=== PATIENT | male | born 1935 ===

== ENCOUNTER 2022-04-29 19:08 | Emergency (ER) | payer MEDICARE, SELFPAY | END 2022-04-29 20:43 | disposition left against medical advice (07) | PROVIDERS: Emergency Provider Emergency Medicine | DX: R10.9 Unspecified abdominal pain (principal) ==

== ENCOUNTER 2022-11-29 14:06 | Emergency (ER) | payer MEDICARE, SELFPAY ==
--- NOTE | ~2022-11-29 | US_ITS ---
EXAMINATION: US VENOUS ULTRASOUND WITH DOPPLER LOWER EXTREMITY, BILATERAL CLINICAL INFORMATION: Bilateral lower extremity pitting edema COMPARISON: None available. TECHNIQUE: Ultrasound of the deep veins is performed from the hip to the calf with compression sonography and color and pulse Doppler assessment. Spectral analysis with color-flow imaging is performed. FINDINGS: RIGHT: There is normal venous compression and respiratory variation and augmented flow. The visualized common femoral vein, superficial femoral vein, profunda femoral vein, popliteal vein, and the trifurcation region shows no evidence of deep venous thrombosis. There is no significant popliteal fossa cyst. There is a mildly prominent lymph node in the right inguinal region, likely reactive to fluid overload LEFT: There is normal venous compression and respiratory variation and augmented flow. The visualized common femoral vein, superficial femoral vein, profunda femoral vein, popliteal vein, and the trifurcation region shows no evidence of deep venous thrombosis. There is no significant popliteal fossa cyst. If the patient's symptoms persist, followup ultrasound in 5 days 7 days might be of value to exclude proximal propagation from a non-visualized calf vein. US/US venous duplex LE BI IMPRESSION: No DVT demonstrated in the bilateral lower extremities.
--- NOTE | ~2022-11-29 | CT_ITS ---
EXAMINATION: CT ANGIOGRAM OF THE CHEST WITH AND WITHOUT CONTRAST (CT PULMONARY ANGIOGRAM FOR PE) CLINICAL INFORMATION: Reason for Exam cp, sob, + dimer COMPARISON: CTA chest 12/27/2012. TECHNIQUE: Prior to contrast administration, noncontrast localization images were obtained. Subsequently, multidetector volumetric imaging was performed from the thoracic inlet to below the diaphragms following the administration of 65 mL Omnipaque 350 intravenous contrast. No contrast reaction reported Sagittal, coronal, and MIP oblique sagittal reformatted images were obtained on the CT workstation, uploaded to PACS, and reviewed. This CT examination was performed using dose optimization techniques as appropriate, variously including the following: *Automated exposure control *Adjustment of mA and/or kV according to patient size (this includes techniques or standardized protocols for targeted exams where dose is matched to indication/reason for exam; i.e. extremities or head) *Use of iterative reconstruction technique Total exam dose-length product 207 mGy-cm FINDINGS: QUALITY OF STUDY/CONTRAST BOLUS: Satisfactory. PULMONARY ARTERIES: No pulmonary emboli. THORACIC AORTA: No aneurysm. LUNG: Background of emphysematous changes and peripheral fibrotic changes, progressed compared to 2012. Prominent biapical pleuroparenchymal thickening and scarring, not significantly changed with a artists' booking representative partially cavitated pleural base observation in the left apex measuring 1.5 cm AP diameter (8:77). Diffuse bronchial wall thickening with a scattered mucus plugging, increased since 2012. Scattered sub-4 mm pulmonary nodules are stable, for instance in the medial right upper lobe (8:138). Central airways are patent. PLEURA: No pleural effusion or pneumothorax. MEDIASTINUM: Normal heart size. No pericardial effusion. No hilar or mediastinal lymphadenopathy. No evidence of septal bowing or right heart strain. CORONARY ARTERY CALCIFICATION: Coronary artery calcifications are present. CHEST WALL/AXILLA: Symmetric gynecomastia. No axillary lymphadenopathy. OSSEOUS STRUCTURES: No acute or suspicious osseous abnormality. UPPER ABDOMEN: Unremarkable. No reflux of contrast into the hepatic veins to suggest elevated right heart pressures. CT/CT angio chest PE protocol IMPRESSION: 1. No evidence of pulmonary embolism. 2. Background of emphysematous changes and peripheral fibrotic changes, progressed since 2012. 3. Diffuse bronchial wall thickening with scattered mucus plugging, increased since 2012, suggesting small airways disease such as bronchitis. 4. Significant biapical pleural-parenchymal thickening, not significantly changed, limiting assessment of underlying pulmonary mass. Scattered pulmonary nodules are not convincingly changed. In this patient with high risk factors for malignancy, continued follow-up with a chest CT in 6-12 months is recommended to rule out underlying malignancy. VTE: negative
--- NOTE | ~2022-11-29 | XR_ITS ---
EXAMINATION: XR CHEST CLINICAL INFORMATION: Shortness of breath and pedal edema COMPARISON: 09/12/2016 TECHNIQUE: 2 views of the chest were obtained. FINDINGS: Normal heart size and pulmonary vascularity. No pleural effusion or pneumothorax. Streaky opacity at the left lung base likely subsegmental atelectasis. No acute osseous abnormalities. XR/XR chest 2V IMPRESSION: * No acute findings. * Left basilar subsegmental atelectasis.
[2022-11-29 14:31] VITALS: BP 125/65; PULSE 108; RESP 16; TEMP 36.1; O2SAT 92; BMI 20.7
--- NOTE | 2022-11-29 14:31 | ED_ITS ---
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 <RYAN Wellington Last Filed: 11/29/22 18:54> Related Data Allergies/Adverse Reactions: Allergies Allergy/AdvReac Type Severity Reaction Status Date / Time No Known Allergies Allergy Unverified 04/23/20 15:07 [No Known Allergies*] <RYAN Ellis Last Filed: 11/29/22 14:41> Review of Systems Review of Systems: Constitutional : No Weight loss, No Fever, No Chills, + Fatigue, + Malaise ENT/Mouth : No sore throat, No Rhinorrhea Eyes: No Eye Pain, No Swelling, No Redness Cardiovascular : + Chest Pain, + SOB, + Dyspnea on Exertion, No Orthopnea, No Edema, No Palpitations Respiratory : No Cough, No Sputum, No Wheezing Gastrointestinal : No Nausea, No Vomiting, No Diarrhea, No Constipation, No abdominal Pain, No Hematochezia, No Melena Genitourinary : No Dysuria, No Urinary Frequency, No Hematuria, Musculoskeletal : No joint pain, No Myalgias, No Joint Swelling Skin : No Skin Lesions, No rash Neuro : No Weakness, No Numbness, No Dizziness, No Headache Psych : No Anxiety/Panic, No Depression All other systems reviewed and are negative <RYAN Wellington - Last Filed: 11/29/22 18:54> Yes all other systems are reviewed and are negative <RYAN Wellington - Last Filed: 11/29/22 18:54> [facility] Past Medical History Attestation statement: The following information was validated with the patient. <RYAN Wellington - Last Filed: 11/29/22 18:54> Source: old records reviewed and nursing notes reviewed <RYAN Wellington - Last Filed: 11/29/22 18:54> Social History Social History: Social History Alcohol intake: never Smoked in Last 30 Days: No Use of substances other than those prescribed or required for medical reasons: No Advance Directives: No Advance Directives Information Provided: Yes <RYAN Ellis - Last Filed: 11/29/22 14:41> Physical Exam Vital Signs: Vital Signs: Last Vital Signs Temp 98.4 F 11/29/22 17:50 Pulse 94 11/29/22 17:50 Resp 16 11/29/22 17:50 BP 153/76 H 11/29/22 17:50 Pulse Ox 99 11/29/22 17:50 O2 Del Method Nasal Cannula 11/29/22 17:50 O2 Flow Rate 3 11/29/22 17:50 BMI result Body Mass Index 20.7 <RYAN Ellis - Last Filed: 11/29/22 14:41> Vital Signs: Last Vital Signs Temp 98.4 F 11/29/22 17:50 Pulse 94 11/29/22 17:50 Resp 16 11/29/22 17:50 BP 153/76 H 11/29/22 17:50 Pulse Ox 99 11/29/22 17:50 O2 Del Method Nasal Cannula 11/29/22 17:50 O2 Flow Rate 3 11/29/22 17:50 BMI result Body Mass Index 20.7 vss <RYAN Wellington - Last Filed: 11/29/22 18:54> Appearance: Alert.? Oriented X3.? No acute distress.? Head: Normocephalic, atraumatic, no step-offs or deformities Eyes: Pupils equal, round and reactive to light.? CVS: Normal heart rate and rhythm.? Pulses normal.? Respiratory: No respiratory distress.? Breath sounds diminished b/l.? Abdomen: Soft and nontender.? Skin: Skin warm and dry.? Normal skin color.? Normal skin turgor.? Extremities:3+ pitting edema from the knee down b/l.? No calf ttp. Global weakness Neuro: Oriented X 3.? No motor deficit.? No sensory deficit. CN 2-12 intact <RYAN Wellington - Last Filed: 11/29/22 18:54> Course Course Course Narrative: RME: 87yo M w/PMHx DM, COPD/Asthma on home O2 3L as needed c/o bilateral LE swelling/edema x 1 week. Reports had someone come to the home and eval patient 3 days ago, they were concerned for CHF and increased his Lasix to 40mg w/o relief. Reports mild SOB & CP +4 b/l pitting edema, diminished lung sounds, 91% on RA EKG, Labs, CXR ordered Full HPI, ROS and PE to be performed by primary ED provider. <RYAN Ellis - Last Filed: 11/29/22 14:41> Reevaluation(s) Reevaluation #1: CBC with no acute findings requiring intervention, no leukocytosis or anemia, patient's sodium slightly elevated 146, BUN 20 likely secondary to poor p.o. intake. Troponin negative, BNP within normal limits.Venous duplex of bilateral lower extremities with no DVT demonstrated in bilateral lower extremities patient does have palpable pulses equal bilateral I do not suspect arterial occlusion or threatened limb. Patient's chest x-ray with no acute findings, left basilar subsegmental atelectasis is noted. Patient very anxious to get out here, does not want wait for imaging or results, does not want further intervention and treatment, he would like to sign out against medical advice he tells me he is feeling fine. Patient well-appearing, O2 saturation 99% on 3 L which he wears at home, no signs of respiratory distress, denies chest pain at this time no shortness of breath tells me he is feeling better. Signing out against medical advice. They understand risks and benefits and risks and benefits were outlined on discharge in Samoan for patient to understand also. <RYAN Wellington - Last Filed: 11/29/22 18:54> Time: 18:54 <RYAN Wellington - Last Filed: 11/29/22 18:54> Medications Administered Discontinued Medications Generic Name Dose Route Start Last Admin Trade Name Freq PRN Reason Stop Dose Admin Iohexol 100 ml 11/29/22 17:36 11/29/22 17:36 Iohexol 350 Mg/Ml 100 Ml Infus..Btl IV 11/29/22 17:37 65 ml ONCE ONE Administration <Cesia Umaña PA - Last Filed: 11/29/22 14:41> Medications Administered Discontinued Medications Generic Name Dose Route Start Last Admin Trade Name Freq PRN Reason Stop Dose Admin Iohexol 100 ml 11/29/22 17:36 11/29/22 17:36 Iohexol 350 Mg/Ml 100 Ml Infus..Btl IV 11/29/22 17:37 65 ml ONCE ONE Administration <RYAN Wellington - Last Filed: 11/29/22 18:54> Medical Decision Making Medical Decision Making [facility] Narrative: 1610 87 year old male presents for evaluation of b/l lower exttremity swelling, cp, sob PE w/ diminished breath sounds, 3+ edema to b/l LE from the knee down, global weakness, VSS Concerns for CHF, chronic lung disease. Unlikley PE, PNA, ACS, arterial occlusion, DVT Plan- labs, imaging, urine, <RYAN Wellington - Last Filed: 11/29/22 18:54> Differential Diagnosis Differential Diagnoses: The differential diagnosis associated with the presentation includes <RYAN Robledo - Last Filed: 11/29/22 18:54> Concerns for CHF, chronic lung disease. Unlikley PE, PNA, ACS, arterial occlusion, DVT <RYAN Wellington - Last Filed: 11/29/22 18:54> Admission/Observation Consideration of admission/observation: Escalation of care including admission/observation considered <RYAN Wellington - Last Filed: 11/29/22 18:54> possible <RYAN Wellington - Last Filed: 11/29/22 18:54> Lab Data [facility] Lab Attestation statement: I reviewed the patient's lab results. <RYAN Wellington - Last Filed: 11/29/22 18:54> Result Diagrams: 11/29/22 14:53 11/29/22 14:53 <RYAN Ellis - Last Filed: 11/29/22 14:41> Labs: Lab Results 11/29/22 11/29/22 11/29/22 Range/Units 14:53 14:53 14:53 WBC 9.1 (4.8-10.8) X10*3/uL RBC 4.21 L (4.60-5.80) X10*6/uL Hgb 14.0 (14.0-18.0) g/dl Hct 42.2 (42.0-52.0) % MCV 100.2 H (80.0-98.0) fL MCH 33.3 H (27.0-33.0) pg MCHC 33.2 (31.0-36.0) g/dl RDW 12.5 (11.0-16.0) % Plt Count 296 (160-400) X10*3/uL MPV 9.2 L (9.4-12.4) fL Immature Gran % (Auto) 0.7 H (0.0-0.4) % Neut % (Auto) 84.9 H (45-73) % Lymph % (Auto) 7.7 L (20-40) % [place] % (Auto) 6.1 (2-11) % Eos % (Auto) 0.3 (0-4) % Baso % (Auto) 0.3 (0-2) % Lymph # (Auto) 0.7 L (1.2-4.9) X10*3/uL [place] # (Auto) 0.6 (0.1-1.2) X10*3/uL Eos # (Auto) 0.0 (0.0-0.4) X10*3/uL Baso # (Auto) 0.0 (0.0-0.2) X10*3/uL Abs Immat Gran (auto) 0.06 H (0.00-0.03) X10*3/uL Absolute Neuts (auto) 7.7 (2.0-8.3) x10*3/uL Absolute Nucleated RBC 0.000 (0.0-0.012) X10*3/uL Nucleated RBC % (auto) 0.0 (0.0-0.2) /100WBC PT 11.6 (10.0-13.1) SEC INR 1.0 (0.9-1.1) D-Dimer High Sensitivty 306 NG/ML Sodium 146 H (135-145) mmol/L Potassium 4.2 (3.3-5.1) mmol/L Chloride 106 (96-108) mmol/L Carbon Dioxide 32 H (22-29) mmol/L Anion Gap 12 (12-20) BUN 20 H (9-16) mg/dL Creatinine 1.11 (0.5-1.4) mg/dL Estim Creat Clear Calc 39.7 Estimated GFR > 60 Random Glucose 228 H (60-115) mg/dL Calcium 9.2 (8.4-10.2) mg/dL Total Bilirubin 0.9 (0.0-1.0) mg/dL Direct Bilirubin 0.3 (0.0-0.5) mg/dL AST 17 (5-37) U/L ALT 18 (0-40) U/L Alkaline Phosphatase 84 (39-117) U/L Troponin I High Sens (<3.5-35.0) ng/L B-Natriuretic Peptide (<100) pg/mL Total Protein 6.0 L (6.5-8.0) g/dL Albumin 4.1 (3.5-5.0) g/dL 11/29/22 11/29/22 Range/Units 14:53 14:53 WBC (4.8-10.8) X10*3/uL RBC (4.60-5.80) X10*6/uL Hgb (14.0-18.0) g/dl Hct (42.0-52.0) % MCV (80.0-98.0) fL MCH (27.0-33.0) pg MCHC (31.0-36.0) g/dl RDW (11.0-16.0) % Plt Count (160-400) X10*3/uL MPV (9.4-12.4) fL Immature Gran % (Auto) (0.0-0.4) % Neut % (Auto) (45-73) % Lymph % (Auto) (20-40) % [place] % (Auto) (2-11) % Eos % (Auto) (0-4) % Baso % (Auto) (0-2) % Lymph # (Auto) (1.2-4.9) X10*3/uL [place] # (Auto) (0.1-1.2) X10*3/uL Eos # (Auto) (0.0-0.4) X10*3/uL Baso # (Auto) (0.0-0.2) X10*3/uL Abs Immat Gran (auto) (0.00-0.03) X10*3/uL Absolute Neuts (auto) (2.0-8.3) x10*3/uL Absolute Nucleated RBC (0.0-0.012) X10*3/uL Nucleated RBC % (auto) (0.0-0.2) /100WBC PT (10.0-13.1) SEC INR (0.9-1.1) D-Dimer High Sensitivty NG/ML Sodium (135-145) mmol/L Potassium (3.3-5.1) mmol/L Chloride (96-108) mmol/L Carbon Dioxide (22-29) mmol/L Anion Gap (12-20) BUN (9-16) mg/dL Creatinine (0.5-1.4) mg/dL Estim Creat Clear Calc Estimated GFR Random Glucose (60-115) mg/dL Calcium (8.4-10.2) mg/dL Total Bilirubin (0.0-1.0) mg/dL Direct Bilirubin (0.0-0.5) mg/dL AST (5-37) U/L ALT (0-40) U/L Alkaline Phosphatase (39-117) U/L Troponin I High Sens < 2.7 (<3.5-35.0) ng/L B-Natriuretic Peptide 11 (<100) pg/mL Total Protein (6.5-8.0) g/dL Albumin (3.5-5.0) g/dL <RYAN Ellis - Last Filed: 11/29/22 14:41> Lab Results 11/29/22 11/29/22 11/29/22 Range/Units 14:53 14:53 14:53 WBC 9.1 (4.8-10.8) X10*3/uL RBC 4.21 L (4.60-5.80) X10*6/uL Hgb 14.0 (14.0-18.0) g/dl Hct 42.2 (42.0-52.0) % MCV 100.2 H (80.0-98.0) fL MCH 33.3 H (27.0-33.0) pg MCHC 33.2 (31.0-36.0) g/dl RDW 12.5 (11.0-16.0) % Plt Count 296 (160-400) X10*3/uL MPV 9.2 L (9.4-12.4) fL Immature Gran % (Auto) 0.7 H (0.0-0.4) % Neut % (Auto) 84.9 H (45-73) % Lymph % (Auto) 7.7 L (20-40) % [place] % (Auto) 6.1 (2-11) % Eos % (Auto) 0.3 (0-4) % Baso % (Auto) 0.3 (0-2) % Lymph # (Auto) 0.7 L (1.2-4.9) X10*3/uL [place] # (Auto) 0.6 (0.1-1.2) X10*3/uL Eos # (Auto) 0.0 (0.0-0.4) X10*3/uL Baso # (Auto) 0.0 (0.0-0.2) X10*3/uL Abs Immat Gran (auto) 0.06 H (0.00-0.03) X10*3/uL Absolute Neuts (auto) 7.7 (2.0-8.3) x10*3/uL Absolute Nucleated RBC 0.000 (0.0-0.012) X10*3/uL Nucleated RBC % (auto) 0.0 (0.0-0.2) /100WBC PT 11.6 (10.0-13.1) SEC INR 1.0 (0.9-1.1) D-Dimer High Sensitivty 306 NG/ML Sodium 146 H (135-145) mmol/L Potassium 4.2 (3.3-5.1) mmol/L Chloride 106 (96-108) mmol/L Carbon Dioxide 32 H (22-29) mmol/L Anion Gap 12 (12-20) BUN 20 H (9-16) mg/dL Creatinine 1.11 (0.5-1.4) mg/dL Estim Creat Clear Calc 39.7 Estimated GFR > 60 Random Glucose 228 H (60-115) mg/dL Calcium 9.2 (8.4-10.2) mg/dL Total Bilirubin 0.9 (0.0-1.0) mg/dL Direct Bilirubin 0.3 (0.0-0.5) mg/dL AST 17 (5-37) U/L ALT 18 (0-40) U/L Alkaline Phosphatase 84 (39-117) U/L Troponin I High Sens (<3.5-35.0) ng/L B-Natriuretic Peptide (<100) pg/mL Total Protein 6.0 L (6.5-8.0) g/dL Albumin 4.1 (3.5-5.0) g/dL 11/29/22 11/29/22 Range/Units 14:53 14:53 WBC (4.8-10.8) X10*3/uL RBC (4.60-5.80) X10*6/uL Hgb (14.0-18.0) g/dl Hct (42.0-52.0) % MCV (80.0-98.0) fL MCH (27.0-33.0) pg MCHC (31.0-36.0) g/dl RDW (11.0-16.0) % Plt Count (160-400) X10*3/uL MPV (9.4-12.4) fL Immature Gran % (Auto) (0.0-0.4) % Neut % (Auto) (45-73) % Lymph % (Auto) (20-40) % [place] % (Auto) (2-11) % Eos % (Auto) (0-4) % Baso % (Auto) (0-2) % Lymph # (Auto) (1.2-4.9) X10*3/uL [place] # (Auto) (0.1-1.2) X10*3/uL Eos # (Auto) (0.0-0.4) X10*3/uL Baso # (Auto) (0.0-0.2) X10*3/uL Abs Immat Gran (auto) (0.00-0.03) X10*3/uL Absolute Neuts (auto) (2.0-8.3) x10*3/uL Absolute Nucleated RBC (0.0-0.012) X10*3/uL Nucleated RBC % (auto) (0.0-0.2) /100WBC PT (10.0-13.1) SEC INR (0.9-1.1) D-Dimer High Sensitivty NG/ML Sodium (135-145) mmol/L Potassium (3.3-5.1) mmol/L Chloride (96-108) mmol/L Carbon Dioxide (22-29) mmol/L Anion Gap (12-20) BUN (9-16) mg/dL Creatinine (0.5-1.4) mg/dL Estim Creat Clear Calc Estimated GFR Random Glucose (60-115) mg/dL Calcium (8.4-10.2) mg/dL Total Bilirubin (0.0-1.0) mg/dL Direct Bilirubin (0.0-0.5) mg/dL AST (5-37) U/L ALT (0-40) U/L Alkaline Phosphatase (39-117) U/L Troponin I High Sens < 2.7 (<3.5-35.0) ng/L B-Natriuretic Peptide 11 (<100) pg/mL Total Protein (6.5-8.0) g/dL Albumin (3.5-5.0) g/dL <RYAN Wellington - Last Filed: 11/29/22 18:54> Independent Interpretation I performed an independent interpretation of an: Plain X-Ray <RYAN Wellington - Last Filed: 11/29/22 18:54> Radiology Impression Discussion of test interpretation with radiology: I have reviewed the radiologist's reading. <RYAN Wellington Last Filed: 11/29/22 18:54> Core Measures AMI core measures followed: Yes <RYAN Wellington Last Filed: 04/25/23 18:54> Measure exclusions: not indicated <RYAN Wellington Last Filed: 11/29/22 18:54> Discharge Plan Discharge Clinical Impression: Bilateral edema of lower extremity, Chest pain, Shortness of breath, Left against medical advice <RYAN Ellis Last Filed: 11/29/22 14:41> Patient Disposition: Home, Self-Care <RYAN Ellis Last Filed: 11/29/22 14:41> Instructions: Chest Pain (DC), Against Medical Advice (ED), Edema (ED), Shortness of Breath (ED) <RYAN Ellis Last Filed: 11/29/22 14:41> Additional Instructions: Take your medications as prescribed. If you were prescribed antibiotics today, it is important that you take your medication to their entirety, do not skip any doses, do not finish them early. Follow-up with your primary care provider this week. Return to the emergency department with new or worsening symptoms. Such as fevers, chills, chest pain, shortness of breath, nausea, vomiting, dizziness, headache, vision changes, lethargy In case of emergency call 911 You decided to leave against medical advice risks include worsening pain, worsening chest pain, shortness of breath, , cardiac arrest, decreased quality of life. Continue taking her Lasix as prescribed. [place] joyce medicamentos seg?n lo prescrito. Si le recetaron antibi?ticos hoy, es importante que tome nguyen medicamento en nguyen totalidad, no se salte ninguna dosis, no los termine antes de tiempo. Seguimiento con nguyen proveedor de atenci?n primaria esta semana. Regrese al departamento de emergencias con s?ntomas nuevos o que empeoran. Javier fiebre, escalofr?os, dolor de pecho, dificultad para respirar, n?useas, v?mitos, mareos, dolor de bhavik, cambios en la visi?n, letargo En naya de emergencia llama al 911 Decidi? irse en contra del consejo m?dico. Los riesgos incluyen empeoramiento del dolor, empeoramiento del dolor en el pecho, dificultad para respirar, muerte, paro card?aco, disminuci?n de la calidad de barney. Contin?e tomando nguyen Lasix seg?n lo prescrito. US/US venous duplex LE BI IMPRESSION: No DVT demonstrated in the bilateral lower extremities. XR/XR chest 2V IMPRESSION: *? No acute findings. *? Left basilar subsegmental atelectasis. <RYAN Ellis - Last Filed: 11/29/22 14:41> Referrals: [facility] [place] Cardiovascular Services [Provider Group] - 2 days Amrit Black MD [Primary Care Provider] - 2 days <RYAN Ellis - Last Filed: 11/29/22 14:41> Stand Alone Forms: Against Medical Advice <RYAN Ellis - Last Filed: 11/29/22 14:41>
--- NOTE | 2022-11-29 14:38 | ECG_ITS ---
Test Reason : cp Blood Pressure : / mmHG Vent. Rate : 105 BPM Atrial Rate : 105 BPM P-R Int : 122 ms QRS Dur : 062 ms QT Int : 340 ms P-R-T Axes : 081 028 078 degrees QTc Int : 449 ms Sinus tachycardia Otherwise normal ECG When compared to the previous EKG of No significant changes seen Referred By: Cesia Umaña Electronically Signed By:Jame Real
[2022-11-29 15:01] LABS: MANUAL DIFF FLAG NO
[2022-11-29 15:03] LABS: Basophils Percent Auto 0.3 % (0-2); Eosinophils Percent Auto 0.3 % (0-4); Hematocrit 42.2 % (42.0-52.0); Imm Gran Abs Auto 0.06 X10*3/uL (0.00-0.03); Imm Gran Pct Auto 0.7 % (0.0-0.4); Lymphocytes Absolute Auto 0.7 X10*3/uL (1.2-4.9); Lymphocytes Percent Auto 7.7 % (20-40); Mean Corpuscular HGB Conc 33.2 g/dl (31.0-36.0); Mean Corpuscular Hemoglobin 33.3 pg (27.0-33.0); Mean Corpuscular Volume 100.2 fL (80.0-98.0); Mean Platelet Volume 9.2 fL (9.4-12.4); Monocytes Absolute Auto 0.6 X10*3/uL (0.1-1.2); Monocytes Percent Auto 6.1 % (2-11); Neutrophils Absolute Auto 7.7 x10*3/uL (2.0-8.3); Neutrophils Percent Auto 84.9 % (45-73); Platelet Count 296 X10*3/uL (160-400); Red Blood Count 4.21 X10*6/uL (4.60-5.80); Red Cell Distribution Width 12.5 % (11.0-16.0); White Blood Count 9.1 X10*3/uL (4.8-10.8)
[2022-11-29 15:08] LABS: Prothrombin Time 11.6 SEC (10.0-13.1)
[2022-11-29 15:23] LABS: Alanine Aminotransferase 18 U/L (0-40); Albumin Level 4.1 g/dL (3.5-5.0); Alkaline Phosphatase 84 U/L (39-117); Anion Gap 12 (12-20); Aspartate Amino Transferase 17 U/L (5-37); Bilirubin Direct 0.3 mg/dL (0.0-0.5); Bilirubin Total 0.9 mg/dL (0.0-1.0); Blood Urea Nitrogen 20 mg/dL (9-16); Calcium 9.2 mg/dL (8.4-10.2); Carbon Dioxide 32 mmol/L (22-29); Chloride 106 mmol/L (96-108); Creatinine Clr Calc Pharmacy 39.7; Estimated Glomerular Filt Rate > 60; Glucose Random 228 mg/dL (60-115); Potassium 4.2 mmol/L (3.3-5.1); Sodium 146 mmol/L (135-145)
[2022-11-29 15:26] LABS: B Type Natriuretic Peptide 11 pg/mL (<100)
[2022-11-29 15:34] VITALS: BP 138/70; PULSE 93; RESP 16; TEMP 36.9; O2SAT 99
[2022-11-29 15:35] LABS: Troponin-I High Sensitivity < 2.7 ng/L (<3.5-35.0)
--- NOTE | 2022-11-29 15:37 | PC.NURSE ---
pt alert/oriented. reporting leg swelling x1-2 weeks. +3 pitting edema noted. pt baseline is no LE swelling. No history of CHF. Pt on 2-3 O2 at home for COPD. Lung sounds clear throughout but diminished. Pt reports no pain, pt reports using an updraft treatment earlier today. Vitals stable. will cont to jose
[2022-11-29 16:45] LABS: D Dimer High Sensitivity 306 NG/ML
[2022-11-29] MEDS: iohexoL 350 MG/ML 100 ML INFUS..BTL IV (17:36)
[2022-11-29 17:50] VITALS: BP 153/76; PULSE 94; RESP 16; TEMP 36.9; O2SAT 99
--- NOTE | 2022-11-29 17:53 | PC.NURSE ---
pt awaiting results from CT scan. no apparent distress. will cont to monitor.
== END 2022-11-29 19:21 | disposition home or self-care (01) ==
PROVIDERS: Physician Assistant; Emergency Provider Emergency Medicine; PCP Internal Medicine
DX: R07.9 Chest pain, unspecified (principal); R60.0 Localized edema; R06.02 Shortness of breath; E11.9 Type 2 diabetes mellitus without complications; J44.9 Chronic obstructive pulmonary disease, unspecified; Z99.81 Dependence on supplemental oxygen
CPT/HCPCS: 36415; 71046; 71275; 80048; 80076; 83880; 84484; 85025; 85379; 85610; 93005; 93970; 99284; Q9967

== ENCOUNTER 2023-03-08 22:34 | Emergency (ER) | payer MEDICARE, SELFPAY ==
--- NOTE | 2023-03-08 | ECG_ITS ---
Test Reason : chest pain Blood Pressure : / mmHG Vent. Rate : 121 BPM Atrial Rate : 121 BPM P-R Int : 124 ms QRS Dur : 068 ms QT Int : 312 ms P-R-T Axes : 080 042 070 degrees QTc Int : 443 ms Sinus tachycardia Otherwise normal ECG When compared with ECG of 29-NOV-2022 14:44, No significant change was found Referred By: Generic ED Physician Electronically Signed By:AIDAN RIDER
--- NOTE | ~2023-03-08 | XR_ITS ---
EXAMINATION: XR CHEST CLINICAL INFORMATION: Shortness of breath. COMPARISON: CTA chest 11/29/2022. Chest radiograph 11/29/2022. TECHNIQUE: Frontal view of the chest was obtained. FINDINGS: Stable appearance of the cardiomediastinal silhouette. Slightly increased bibasilar interstitial coarsening. Stable biapical subpleural thickening. No pleural effusion or pneumothorax. No acute osseous findings. Nonspecific gastric/colonic gaseous distention in the left upper quadrant. XR/XR chest 1V IMPRESSION: 1. Slightly increased bibasilar interstitial coarsening which is nonspecific and could be associated with asthma, bronchitis, reactive airways disease or atypical infections. 2. Nonspecific gastric/colonic distention in the left upper quadrant, correlation with an abdominal radiograph could be obtained as clinically indicated.
[2023-03-08 22:37] VITALS: BP 132/84; PULSE 132; RESP 30; TEMP 36.8; O2SAT 96; BMI 20.4
--- NOTE | 2023-03-08 22:55 | ED_ITS ---
HPI - Chest Pain General Chief Complaint: Chest Pain Stated Complaint: trouble breathing Time Seen by Provider: 03/08/23 22:48 Source: patient Mode of arrival: ambulatory Limitations: no limitations History of Present Illness HPI narrative: Patient comes to the emergency room accompanied by his son. Patient states that he has been having chest pain for about a week, combination with chest pressure, and shortness of breath. Patient uses 3 L of oxygen at home. Patient states that starting yesterday he started having a sore throat. Patient denies fever chills, no vomiting or diarrhea. Related Data Previous Rx's Medication Instructions Recorded doxycycline hyclate 100 mg capsule 100 mg PO BID #14 caps 03/09/23 prednisone 50 mg tablet 50 mg PO BID #5 tabs 03/09/23 Allergies Allergy/AdvReac Type Severity Reaction Status Date / Time No Known Allergies Allergy Unverified 04/23/20 15:07 [No Known Allergies*] Review of Systems Review of Systems: Constitutional : No Weight loss, No Fever, No Chills, No Night Sweats, No Fatigue, No Malaise ENT/Mouth : No Hearing loss, No Ear Pain, No Nasal Congestion, No Sinus Pain, No Hoarseness, No sore throat, No Rhinorrhea, No Swallowing Difficulty Eyes: No Eye Pain, No Swelling, No Redness, No Foreign Body, No Discharge, No Vision Changes Cardiovascular : Complaining of chest pressure and tightness, No Chest Pain, complaining of shortness of breath which is chronic, uses 3 L at home. Respiratory : Complaining of cough, wheezing, chest tightness, shortness of b reath Gastrointestinal : No Nausea, No Vomiting, No Diarrhea, No Constipation, No abdominal Pain, No Hematochezia, No Melena Genitourinary : no irregular bleeding, No Dysuria, No Urinary Frequency, No Hematuria, No Urinary Incontinence, No Urgency, No Flank Pain, No Urinary Flow Changes, No Hesitancy Musculoskeletal : No joint pain, No Myalgias, No Joint Swelling Skin : No Skin Lesions, No rash Neuro : No Weakness, No Numbness, No Paresthesias, No Loss of Consciousness, No Dizziness, No Headache Psych : No Anxiety/Panic, No Depression, No SI/HI/AH/VH, No Social Issues, Heme/Lymph: No Bruising, No Bleeding,No Lymphadenopathy Endocrine : No Polyuria, No Polydipsia, No Temperature Intolerance PMFSH Past Medical History Medical History (Updated 03/09/23 @ 00:12 by Yesy Bolton MD) Asthma COPD (chronic obstructive pulmonary disease) Social History Social History Alcohol intake: former Smoked in Last 30 Days: No Use of substances other than those prescribed or required for medical reasons: No Advance Directives: No Advance Directives Information Provided: No Physical Exam Vital Signs: Vital Signs: Last Vital Signs Temp 98.3 F 03/08/23 22:37 Pulse 118 H 03/08/23 23:16 Resp 18 03/08/23 23:16 BP 132/84 03/08/23 22:37 Pulse Ox 96 03/08/23 22:37 O2 Del Method Nasal Cannula 03/08/23 22:37 Oxygen Flow Rate 3 03/08/23 22:37 BMI result Body Mass Index 20.4 Const: Other: Appearance: Alert. Oriented X3. No acute distress. Eyes: Pupils equal, round and reactive to light. ENT: Pharynx normal. Neck: Normal inspection. Neck supple. No lymph nodes noted. No crepitus CVS: Normal heart rate and rhythm. Pulses normal. Normal S1 and S2 Respiratory: Bilateral wheezing, significantly decreased air movement Abdomen: Soft and nontender. No rigidity. No distention. Skin: Skin warm and dry. Normal skin color. Normal skin turgor. Extremities: No lower extremity edema. No Lacerations. No Rash Neuro: Oriented X 3. No motor deficit. No sensory deficit. Moving all extremities. No slurred speech. CN 2 through 12 grossly intact Psych: calm, cooperative, normal affect Course Course Course Narrative: -patient receiving IV fluids, Solu-Medrol, magnesium and nebulization treatment. Medications Administered Discontinued Medications Generic Name Dose Route Start Last Admin Trade Name Freq PRN Reason Stop Dose Admin Albuterol Sulfate 10 mg 03/08/23 23:00 03/08/23 23:16 Albuterol Sulfate (0.083%) 2.5 Mg/3 Ml Vial.Neb INHALE 03/08/23 23:01 10 mg ONCE ONE Administration Sodium Chloride 1,769.01 mls @ 1,769.01 mls/hr 03/08/23 22:59 03/09/23 00:31 Ns 30 ml/kg infuse over 1 hr (1769.01 ml) 03/08/23 23:58 1,769.01 mls/hr IV Administration .Q1H STA Ceftriaxone Sodium 1 gm/ 50 mls @ 100 mls/hr 03/08/23 22:59 03/09/23 00:32 Sodium Chloride IV 03/08/23 23:28 Infused ONCE ONE Infusion Azithromycin 500 mg/ Sodium 250 mls @ 125 mls/hr 03/08/23 22:59 03/08/23 23:35 Chloride IV 03/09/23 00:58 125 mls/hr ONCE ONE Administration Magnesium Sulfate 2 gm in 50 mls @ 25 mls/hr 03/08/23 23:00 03/08/23 23:35 Magnesium Sulfate/H2o IV 03/09/23 00:59 25 mls/hr ONCE ONE Administration Methylprednisolone Sodium Succinate 125 mg 03/08/23 23:00 03/08/23 23:35 Methylprednisolone Sod Succ 125 Mg/2 Ml Vial IVPUSH 03/08/23 23:01 125 mg ONCE ONE Administration Medical Decision Making Medical Decision Making [facility] Narrative: -patient came in complaining with shortness of breath, agitated, admission was considered. -after IV treatment with medications and nebulization treatment, patient states that he feels completely back to normal. Patient denies chest pain or chest tightness, no shortness of breath, saturating in the mid 90s on 3 L. -given patient's comorbidities, patient will be discharged with antibiotics and with prednisone. -x-ray: No infiltrates, possible atelectasis in the right lower lobe -patient's lactic acid elevation likely secondary to multiple nebulization treatments, sepsis not suspected. Differential Diagnosis Differential Diagnoses: The differential diagnosis associated with the presentation includes (Chronic lung disease, respiratory failure, pneumonia, viral bronchitis) Admission/Observation Consideration of admission/observation: Escalation of care including admission/observation considered Lab Data [facility] Lab Attestation statement: I reviewed the patient's lab results. Patient's white blood cell count within normal limits, lactic 03/08/23 23:13 03/08/23 23:13 Labs: Lab Results 03/08/23 03/08/23 03/08/23 Range/Units 23:13 23:13 23:13 WBC 9.6 (4.8-10.8) X10*3/uL RBC 4.38 L (4.60-5.80) X10*6/uL Hgb 14.1 (14.0-18.0) g/dl Hct 41.6 L (42.0-52.0) % MCV 95.0 (80.0-98.0) fL MCH 32.2 (27.0-33.0) pg MCHC 33.9 (31.0-36.0) g/dl RDW 12.1 (11.0-16.0) % Plt Count 256 (160-400) X10*3/uL MPV 9.8 (9.4-12.4) fL Absolute Nucleated RBC 0.000 (0.0-0.012) X10*3/uL Nucleated RBC % (auto) 0.0 (0.0-0.2) /100WBC PT (11.1-13.3) SEC INR (0.9-1.1) VBG pH (7.32-7.43) VBG pCO2 mmHg VBG pO2 mmHg VBG HCO3 (22-26) mmol/L VBG O2 Saturation % VBG Base Excess mmol/L Sodium 143 (135-145) mmol/L Potassium 3.6 (3.3-5.1) mmol/L Chloride 103 (96-108) mmol/L Carbon Dioxide 26 (22-29) mmol/L Anion Gap 18 (12-20) BUN 22 H (9-16) mg/dL Creatinine 1.18 (0.5-1.4) mg/dL Estim Creat Clear Calc 36.0 Estimated GFR 58 Random Glucose 192 H (60-115) mg/dL Lactic Acid (0.5-2.0) mmol/L Calcium 10.0 D (8.4-10.2) mg/dL Total Bilirubin 0.8 (0.0-1.0) mg/dL AST 23 (5-37) U/L ALT 21 (0-40) U/L Alkaline Phosphatase 81 (39-117) U/L Troponin I High Sens 3.7 (<3.5-35.0) ng/L B-Natriuretic Peptide (<100) pg/mL Total Protein 6.8 (6.5-8.0) g/dL Albumin 4.3 (3.5-5.0) g/dL COVID-19 (GEMMA) (Negative) COVID-19 Clin Com Influenza Type A (ADIN) (Negative) Influenza Type B (ADIN) (Negative) Influenza A & B Note 03/08/23 03/08/23 03/08/23 Range/Units 23:13 23:13 23:13 WBC (4.8-10.8) X10*3/uL RBC (4.60-5.80) X10*6/uL Hgb (14.0-18.0) g/dl Hct (42.0-52.0) % MCV (80.0-98.0) fL MCH (27.0-33.0) pg MCHC (31.0-36.0) g/dl RDW (11.0-16.0) % Plt Count (160-400) X10*3/uL MPV (9.4-12.4) fL Absolute Nucleated RBC (0.0-0.012) X10*3/uL Nucleated RBC % (auto) (0.0-0.2) /100WBC PT 11.9 (11.1-13.3) SEC INR 1.0 (0.9-1.1) VBG pH (7.32-7.43) VBG pCO2 mmHg VBG pO2 mmHg VBG HCO3 (22-26) mmol/L VBG O2 Saturation % VBG Base Excess mmol/L Sodium (135-145) mmol/L Potassium (3.3-5.1) mmol/L Chloride (96-108) mmol/L Carbon Dioxide (22-29) mmol/L Anion Gap (12-20) BUN (9-16) mg/dL Creatinine (0.5-1.4) mg/dL Estim Creat Clear Calc Estimated GFR Random Glucose (60-115) mg/dL Lactic Acid 2.3 H* (0.5-2.0) mmol/L Calcium (8.4-10.2) mg/dL Total Bilirubin (0.0-1.0) mg/dL AST (5-37) U/L ALT (0-40) U/L Alkaline Phosphatase (39-117) U/L Troponin I High Sens (<3.5-35.0) ng/L B-Natriuretic Peptide 14 (<100) pg/mL Total Protein (6.5-8.0) g/dL Albumin (3.5-5.0) g/dL COVID-19 (GEMMA) (Negative) COVID-19 Clin Com Influenza Type A (ADIN) (Negative) Influenza Type B (ADIN) (Negative) Influenza A & B Note 03/08/23 03/08/23 03/08/23 Range/Units 23:15 23:15 23:20 WBC (4.8-10.8) X10*3/uL RBC (4.60-5.80) X10*6/uL Hgb (14.0-18.0) g/dl Hct (42.0-52.0) % MCV (80.0-98.0) fL MCH (27.0-33.0) pg MCHC (31.0-36.0) g/dl RDW (11.0-16.0) % Plt Count (160-400) X10*3/uL MPV (9.4-12.4) fL Absolute Nucleated RBC (0.0-0.012) X10*3/uL Nucleated RBC % (auto) (0.0-0.2) /100WBC PT (11.1-13.3) SEC INR (0.9-1.1) VBG pH 7.42 (7.32-7.43) VBG pCO2 47 mmHg VBG pO2 53 mmHg VBG HCO3 30 H (22-26) mmol/L VBG O2 Saturation 82.0 % VBG Base Excess 5.3 mmol/L Sodium (135-145) mmol/L Potassium (3.3-5.1) mmol/L Chloride (96-108) mmol/L Carbon Dioxide (22-29) mmol/L Anion Gap (12-20) BUN (9-16) mg/dL Creatinine (0.5-1.4) mg/dL Estim Creat Clear Calc Estimated GFR Random Glucose (60-115) mg/dL Lactic Acid (0.5-2.0) mmol/L Calcium (8.4-10.2) mg/dL Total Bilirubin (0.0-1.0) mg/dL AST (5-37) U/L ALT (0-40) U/L Alkaline Phosphatase (39-117) U/L Troponin I High Sens (<3.5-35.0) ng/L B-Natriuretic Peptide (<100) pg/mL Total Protein (6.5-8.0) g/dL Albumin (3.5-5.0) g/dL COVID-19 (GEMMA) Negative (Negative) COVID-19 Clin Com See Note Influenza Type A (ADIN) Negative (Negative) Influenza Type B (ADIN) Negative (Negative) Influenza A & B Note See Note Independent Interpretation I performed an independent interpretation of an: EKG (For interpretation of EKG: Sinus rhythm, tachycardic, 101 21, no ST segment depression elevation, no T-wave inversion, QTC 443) and Plain X-Ray Radiology Impression Discussion of test interpretation with radiology: I have reviewed the radiologist's reading. Radiologist Impression: FINDINGS: Stable appearance of the cardiomediastinal silhouette. Slightly increased bibasilar interstitial coarsening. Stable biapical subpleural thickening. No pleural effusion or pneumothorax. No acute osseous findings. Nonspecific gastric/colonic gaseous distention in the left upper quadrant. XR/XR chest 1V IMPRESSION: 1.? Slightly increased bibasilar interstitial coarsening which is nonspecific and could be associated with asthma, bronchitis, reactive airways disease or atypical infections. 2.? Nonspecific gastric/colonic distention in the left upper quadrant, correlation with an abdominal radiograph could be obtained as clinically indicated. Independent Historian Clinical information obtained from an independent historian. History obtained from or confirmed by: Other (Patient's son) Tests considered The following testing was considered but not selected: I considered doing a CTA to rule out pulmonary embolism. However, patient improved significantly with albuterol , magnesium and Solu-Medrol. Patient's Wells criteria for probable air embolism is 1.5, unlikely to be a PE. Patient had an elevated dimer in November of this year, a CT scan was negative for pulmonary embolisms Scores Wells PE Heart rate > 100 p/min: 1.5 Score: 1.5 2-tier Risk: unlikely risk (5%) 3-tier Risk: low risk (3.4%) Critical Care Time Critical Care Time Critical Care Time: Yes Total Critical Care Time: 60 Attestation: I have personally provided critical care time. Time includes review of lab data, radiology results, discussion with consultants, and monitoring for potential decompensation. Intervention performed as documented. Discharge Plan Discharge Clinical Impression: Chronic lung disease, Viral URI Patient Disposition: Home, Self-Care Instructions: Viral Syndrome (ED) Additional Instructions: Please follow-up with your primary care physician tomorrow. If you have any worsening or new symptoms, please return to the emergency room or call 911 Prescriptions: New doxycycline hyclate 100 mg capsule 100 mg PO BID Qty: 14 0RF prednisone 50 mg tablet 50 mg PO BID Qty: 5 0RF
[2023-03-08 23:16] VITALS: PULSE 118; RESP 18; O2SAT 98
[2023-03-08] MEDS: Albuterol Sulfate (0.083%) 2.5 MG/3 ML VIAL.NEB 10 MG INHALE (23:16)
[2023-03-08 23:23] LABS: Hematocrit 41.6 % (42.0-52.0); Hemoglobin 14.1 g/dl (14.0-18.0); Mean Corpuscular HGB Conc 33.9 g/dl (31.0-36.0); Mean Corpuscular Hemoglobin 32.2 pg (27.0-33.0); Mean Platelet Volume 9.8 fL (9.4-12.4); Platelet Count 256 X10*3/uL (160-400); Red Blood Count 4.38 X10*6/uL (4.60-5.80); Red Cell Distribution Width 12.1 % (11.0-16.0); White Blood Count 9.6 X10*3/uL (4.8-10.8)
[2023-03-08 23:30] LABS: Venous Blood Gas Refer to POC result
[2023-03-08 23:30] LABS: VBG Base Excess 5.3 mmol/L; VBG HCO3 30 mmol/L (22-26); VBG pCO2 47 mmHg; VBG pH 7.42 (7.32-7.43); VBG pO2 53 mmHg
[2023-03-08] MEDS: Azithromycin 500 MG in 0.9 % Sodium Chloride 250 ML 125 MG IV (23:35)
[2023-03-08] MEDS: cefTRIAXone sodium 1 GM in 0.9 % Sodium Chloride 50 ML IV (23:35)
[2023-03-08] MEDS: methylPREDNISolone Sod Succ 125 MG/2 ML VIAL IVPUSH (23:35)
[2023-03-08] MEDS: Magnesium Sulfate/H2O 2 GM/50 ML PIGGYBACK IV (23:35)
[2023-03-08 23:37] LABS: IDNOW Serial# 6674DD1D; Influenza A Negative (Negative); Influenza B2 Negative (Negative)
[2023-03-08 23:40] LABS: Alanine Aminotransferase 21 U/L (0-40); Albumin Level 4.3 g/dL (3.5-5.0); Alkaline Phosphatase 81 U/L (39-117); Anion Gap 18 (12-20); Aspartate Amino Transferase 23 U/L (5-37); Bilirubin Total 0.8 mg/dL (0.0-1.0); Blood Urea Nitrogen 22 mg/dL (9-16); Carbon Dioxide 26 mmol/L (22-29); Chloride 103 mmol/L (96-108); Estimated Glomerular Filt Rate 58; Glucose Random 192 mg/dL (60-115); Potassium 3.6 mmol/L (3.3-5.1); Sodium 143 mmol/L (135-145); Total Protein 6.8 g/dL (6.5-8.0)
[2023-03-08 23:43] LABS: B Type Natriuretic Peptide 14 pg/mL (<100); Troponin-I High Sensitivity 3.7 ng/L (<3.5-35.0)
[2023-03-08 23:46] LABS: Lactic Acid 2.3 mmol/L (0.5-2.0)
[2023-03-08 23:46] LABS: COVID-19 Test Negative (Negative); IDNOW Serial# 08D9AD1C
[2023-03-09 00:01] LABS: Prothrombin Time 11.9 SEC (11.1-13.3)
[2023-03-09] MEDS: 0.9 % Sodium Chloride 1,769.01 ML 1769.01 ML IV (00:31)
[2023-03-09 01:20] LABS: Reflex Lactate? Lactic Acid Added
== END 2023-03-09 01:35 | disposition home or self-care (01) ==
PROVIDERS: Emergency Provider Emergency Medicine; PCP Internal Medicine
DX: J06.9 Acute upper respiratory infection, unspecified (principal); R07.89 Other chest pain; R06.02 Shortness of breath; Z20.822 Contact with and (suspected) exposure to COVID-19; Z20.828 Contact with and (suspected) exposure to other viral communicable diseases; Z79.899 Other long term (current) drug therapy
CPT/HCPCS: 36415; 71045; 80053; 82803; 83605; 83880; 84484; 85027; 85610; 87040; 87502; 87635; 93005; 94640; 96365; 96375; 99284; 99285; J0456; J0696; J2930; J3475

== ENCOUNTER → 2023-03-08 22:46 | Outpatient (BNV) | payer MEDICARE, SELFPAY | PROVIDERS: Emergency Provider Emergency Medicine; PCP Internal Medicine; Visit Provider Internal Medicine | DX: R07.9 Chest pain, unspecified (principal); R00.0 Tachycardia, unspecified | CPT/HCPCS: 93010 ==

== ENCOUNTER 2023-06-22 09:51 | Emergency (ER) | payer MEDICARE, SELFPAY ==
--- NOTE | ~2023-06-22 | CT_ITS ---
EXAMINATION: CT ABDOMEN AND PELVIS WITHOUT CONTRAST CLINICAL INFORMATION: Right lower quadrant tenderness COMPARISON: None available. TECHNIQUE: Multidetector volumetric imaging was performed from the superior aspect of the liver through the pubic symphysis. Sagittal and coronal reformatted images were obtained on the technologist's workstation. This CT examination was performed using dose optimization techniques as appropriate, variously including the following: *Automated exposure control *Adjustment of mA and/or kV according to patient size (this includes techniques or standardized protocols for targeted exams where dose is matched to indication/reason for exam; i.e. extremities or head) *Use of iterative reconstruction technique DLP: 348 mGy-cm FINDINGS: LUNG BASES: Minor atelectasis at the lung bases. No pleural effusions. LIVER, GALLBLADDER, AND BILIARY TREE: Somewhat nodular contour to the liver. There appears to be prominence to the portal vessels. A contrast exam would be more helpful in this case. I do not see evidence of suspicious mass or intrahepatic dilatation. The gallbladder is unremarkable with no evidence of radiopaque gallstones, gallbladder wall thickening, or obvious pericholecystic inflammatory changes. PANCREAS: Unremarkable. SPLEEN: Unremarkable. ADRENAL GLANDS: Unremarkable. KIDNEYS AND URETERS: The kidneys are normal in size, shape, and attenuation. No hydronephrosis, hydroureter, or calculi seen. No perinephric stranding. BLADDER: Unremarkable. GASTROINTESTINAL TRACT: Large stool burden the colon. Stomach is distended and filled with ingested material. There may be some induration and inflammatory change in the region of the duodenum suggestive of duodenitis duodenitis or peptic ulcer disease. Oral contrast and 50 helpful here. I do not see evidence of an abscess collection or nuno perforation. There is no evidence for bowel obstruction or right or left lower quadrant inflammation. The cecum is appears to extend midline I cannot definitely see the appendix. No evidence for inflammatory change at the base of the cecum. ABDOMINAL WALL: No significant hernia is appreciated. LYMPH NODES: Normal. VASCULAR: Aorta is ectatic and atherosclerotic but nonaneurysmal and there are no periaortic collections. PELVIC VISCERA: Unremarkable. OSSEOUS STRUCTURES: Unremarkable. CT/CT abdomen pelvis wo IV con IMPRESSION: Query inflammatory changes related to the duodenum, and antrum. No evidence for an acute right lower quadrant inflammatory process.
[2023-06-22 10:05] VITALS: BP 114/69; PULSE 96; RESP 16; TEMP 37.1; O2SAT 97
[2023-06-22 10:17] LABS: Glucose, Whole Blood 136 mg/dL (60-115)
[2023-06-22 10:41] LABS: COVID-19 Test Negative (Negative); IDNOW Serial# BCCEAD1C
[2023-06-22 10:45] LABS: Alanine Aminotransferase 23 U/L (0-40); Albumin Level 3.7 g/dL (3.5-5.0); Alkaline Phosphatase 72 U/L (39-117); Anion Gap 11 (12-20); Aspartate Amino Transferase 18 U/L (5-37); Bilirubin Direct 0.4 mg/dL (0.0-0.5); Blood Urea Nitrogen 21 mg/dL (9-16); Calcium 9.4 mg/dL (8.4-10.2); Carbon Dioxide 35 mmol/L (22-29); Chloride 97 mmol/L (96-108); Creatinine Clr Calc Pharmacy 48.3; Estimated Glomerular Filt Rate > 60; Glucose Random 156 mg/dL (60-115); Lipase 15 U/L (8-78); Potassium 3.2 mmol/L (3.3-5.1); Sodium 140 mmol/L (135-145); Total Protein 5.8 g/dL (6.5-8.0)
--- NOTE | 2023-06-22 11:32 | ED.GENADULT ---
HPI - General Adult General Chief complaint: Abdominal Pain Stated complaint: R & L Side Pain Time Seen by Provider: 06/22/23 11:20 Source: patient and family (Daughter) Mode of arrival: ambulatory Limitations: no limitations History of Present Illness HPI narrative: Patient is an 88-year-old male with history of COPD, asthma, diabetes presenting to the emergency department with daughter who reports that patient began complaining of right lower quadrant abdominal pain earlier today. Patient feels as though he has swelling to his right lower quadrant. Daughter notes that patient does have some ecchymosis to the area but that is from his insulin injections. Visiting nurse this morning noted patient's glucose to be 50. He then ate breakfast. He complains of some nausea without vomiting or diarrhea as well as dysuria for the past 3-4 days. Denies any constipation. Denies fevers. Denies back or flank pain. MD complaint: Abdominal pain Onset (ago): day(s) Location: abdomen Radiation: non-radiation Severity: moderate Quality: aching Pain Consistency: constant Relieving factors: none Exacerbating factors: movement Associated symptoms: nausea/vomiting (Reports nausea denies vomiting) Treatments prior to arrival: none Related Data Previous Rx's Medication Instructions Recorded doxycycline hyclate 100 mg capsule 100 mg PO BID #14 caps 03/09/23 prednisone 50 mg tablet 50 mg PO BID #5 tabs 03/09/23 polyethylene glycol 3350 17 17 g PO DAILY PRN constipation 06/22/23 gram/dose oral powder (Miralax) #119 grams sennosides 8.6 mg capsule (senna) 8.6 mg PO BID PRN constipation #14 06/22/23 caps Allergies Allergy/AdvReac Type Severity Reaction Status Date / Time lorazepam AdvReac Agitated Verified 06/22/23 12:25 Review of Systems Review of Systems: As per HPI. Yes all other systems are reviewed and are negative PMFSH Past Medical History Medical History (Updated 06/22/23 @ 16:25 by Alma Delia Odell NP) Asthma COPD (chronic obstructive pulmonary disease) Social History Social History Alcohol intake: former Smoked in Last 30 Days: No Use of substances other than those prescribed or required for medical reasons: No Advance Directives: Yes Advance Directives on File: No Physical Exam ED Vital Signs: Vital Signs - 24 hr 06/22/23 10:05 Temperature 98.8 F Pulse Rate 96 Respiratory Rate 16 Blood Pressure 114/69 Pulse Oximetry 97 Oxygen Delivery Method Nasal Cannula BMI result Body Mass Index 0.2 Vital signs have been reviewed and appear to be correct. Blood pressure normal. Heart rate normal. Respiratory rate normal. Temperature normal. Oxygen saturation normal. Const General: cooperative, no acute distress, alert and awake Orientation/consciousness: patient oriented x3 HENMT Head: Yes normocephalic and Yes atraumatic Ears: hearing grossly normal bilaterally and external ears normal General nose exam: Normal nasal mucous membranes and turbinates present and Normal septum present Face and sinus: Yes normal facial exam Mouth: lip normal, tongue normal and moist mucous membranes Throat: Yes posterior oropharynx normal Eyes Pupils: Equal, round and reactive pupils present Neck Neck: Yes normal visual inspection, Yes full ROM and Yes supple Resp Effort & Inspection: normal respiratory effort Auscultation: clear to auscultation bilaterally Cardio Rate: regular rate Rhythm: regular rhythm Heart sounds: S1 normal heart sound present and S2 normal heart sound present GI Other: mild ecchymosis to RLQ which patient states is from injecting his SC insulin Palpation (GI): Soft to palpation and nontender Auscultation: normoactive bowel sounds General: Yes no CVA tenderness Back/Spine/Pelvis Back: no CVA tenderness Skin General skin exam: elasticity normal and turgor normal Neuro General: patient oriented x3, gait normal, tone normal and moves all extremities Cranial nerves: Yes Equal, round and reactive pupils present Extrem General: Yes normal to inspection, Yes full ROM, Yes capillary refill normal, Yes no pedal edema and Yes no calf tenderness Medications Administered Discontinued Medications Generic Name Dose Route Start Last Admin Trade Name Freq PRN Reason Stop Dose Admin Sodium Chloride 500 mls @ 500 mls/hr 06/22/23 11:45 06/22/23 12:40 Ns IV 06/22/23 12:44 500 mls/hr .Q1H FARHAD Administration Potassium Chloride 20 meq 06/22/23 11:38 06/22/23 12:34 Potassium Chloride Er 20 Meq Tab.Er.Prt PO 06/22/23 11:39 20 meq ONCE ONE Administration Quetiapine Fumarate 25 mg 06/22/23 12:27 11/16/23 12:34 Quetiapine Fumarate 25 Mg Tablet PO 06/22/23 12:28 25 mg ONCE ONE Administration Medical Decision Making Medical Decision Making [facility] Narrative: Patient is an 88-year-old male with history of COPD, asthma, diabetes presenting to the emergency department with daughter who reports that patient began complaining of right lower quadrant abdominal pain earlier today. On exam patient is awake, A+Ox3, VS WNL, afebrile, normal neurological exam without focal deficits, physical exam findings as above. Given reported symptoms and physical exam findings, initial differential includes UTI, renal or ureteral calculi, hernia, hematoma. Do not suspect sepsis at this time. Labs notable for leukocytosis, hypokalemia. CT notable for possible inflammatory changes to duodenum and antrum, no evidence of acute RLQ inflammatory process, no evidence of renal calculi or hydronephrosis, large stool burden noted, no hernia. My interpretation is in agreement with the radiologist's interpretation. No evidence of infection on UA. All results discussed with patient and family and all questions answered. Feel symptoms likely related to constipation. Will discharge patient home with prescriptions for senna and miralax. Instructed family to follow-up with patient's PCP. Return precautions discussed at bedside. Patient family verbalized understanding of and agreement with plan. Differential Diagnosis Differential Diagnoses: The differential diagnosis associated with the presentation includes As per [facility] Admission/Observation Consideration of admission/observation: Escalation of care including admission/observation considered Lab Data [facility] Lab Attestation statement: I reviewed the patient's lab results. As per [facility] 06/22/23 11:46 06/22/23 10:19 Labs: Lab Results 06/22/23 06/22/23 06/22/23 Range/Units 10:13 10:16 10:19 WBC (4.8-10.8) X10*3/uL RBC (4.60-5.80) X10*6/uL Hgb (14.0-18.0) g/dl Hct (42.0-52.0) % MCV (80.0-98.0) fL MCH (27.0-33.0) pg MCHC (31.0-36.0) g/dl RDW (11.0-16.0) % Plt Count (160-400) X10*3/uL MPV (9.4-12.4) fL Immature Gran % (Auto) (0.0-0.4) % Neut % (Auto) (45-73) % Lymph % (Auto) (20-40) % Shannon % (Auto) (2-11) % Eos % (Auto) (0-4) % Baso % (Auto) (0-2) % Lymph # (Auto) (1.2-4.9) X10*3/uL Shannon # (Auto) (0.1-1.2) X10*3/uL Eos # (Auto) (0.0-0.4) X10*3/uL Baso # (Auto) (0.0-0.2) X10*3/uL Abs Immat Gran (auto) (0.00-0.03) X10*3/uL Absolute Neuts (auto) (2.0-8.3) x10*3/uL Absolute Nucleated RBC (0.0-0.012) X10*3/uL Nucleated RBC % (auto) (0.0-0.2) /100WBC Sodium 140 (135-145) mmol/L Potassium 3.2 L (3.3-5.1) mmol/L Chloride 97 (96-108) mmol/L Carbon Dioxide 35 H (22-29) mmol/L Anion Gap 11 L (12-20) BUN 21 H (9-16) mg/dL Creatinine 0.88 (0.5-1.4) mg/dL Estim Creat Clear Calc 48.3 Estimated GFR > 60 POC Glucose 136 H (60-115) mg/dL Random Glucose 156 H (60-115) mg/dL Calcium 9.4 (8.4-10.2) mg/dL Total Bilirubin 1.0 (0.0-1.0) mg/dL Direct Bilirubin 0.4 (0.0-0.5) mg/dL AST 18 (5-37) U/L ALT 23 (0-40) U/L Alkaline Phosphatase 72 (39-117) U/L Total Protein 5.8 L (6.5-8.0) g/dL Albumin 3.7 (3.5-5.0) g/dL Lipase 15 (8-78) U/L Urine Color Urine Appearance Urine pH (5.0-9.0) Ur Specific [place] (1.005-1.025) Urine Protein (Neg-Trace) mg/dL Urine Glucose (UA) (Negative) mg/dL Urine Ketones (Negative) mg/dL Urine Blood (Negative) Urine Nitrite (Negative) Ur Leukocyte Esterase (Negative) COVID-19 (GEMMA) Negative (Negative) COVID-19 Clin Com See Note 06/22/23 06/22/23 Range/Units 11:46 16:02 WBC 12.6 H (4.8-10.8) X10*3/uL RBC 4.20 L (4.60-5.80) X10*6/uL Hgb 13.7 L (14.0-18.0) g/dl Hct 40.2 L (42.0-52.0) % MCV 95.7 (80.0-98.0) fL MCH 32.6 (27.0-33.0) pg MCHC 34.1 (31.0-36.0) g/dl RDW 11.9 (11.0-16.0) % Plt Count 221 (160-400) X10*3/uL MPV 9.4 (9.4-12.4) fL Immature Gran % (Auto) 0.8 H (0.0-0.4) % Neut % (Auto) 84.2 H (45-73) % Lymph % (Auto) 6.0 L (20-40) % Shannon % (Auto) 7.4 (2-11) % Eos % (Auto) 1.4 (0-4) % Baso % (Auto) 0.2 (0-2) % Lymph # (Auto) 0.8 L (1.2-4.9) X10*3/uL Shannon # (Auto) 0.9 (0.1-1.2) X10*3/uL Eos # (Auto) 0.2 (0.0-0.4) X10*3/uL Baso # (Auto) 0.0 (0.0-0.2) X10*3/uL Abs Immat Gran (auto) 0.10 H (0.00-0.03) X10*3/uL Absolute Neuts (auto) 10.6 H (2.0-8.3) x10*3/uL Absolute Nucleated RBC 0.000 (0.0-0.012) X10*3/uL Nucleated RBC % (auto) 0.0 (0.0-0.2) /100WBC Sodium (135-145) mmol/L Potassium (3.3-5.1) mmol/L Chloride (96-108) mmol/L Carbon Dioxide (22-29) mmol/L Anion Gap (12-20) BUN (9-16) mg/dL Creatinine (0.5-1.4) mg/dL Estim Creat Clear Calc Estimated GFR POC Glucose (60-115) mg/dL Random Glucose (60-115) mg/dL Calcium (8.4-10.2) mg/dL Total Bilirubin (0.0-1.0) mg/dL Direct Bilirubin (0.0-0.5) mg/dL AST (5-37) U/L ALT (0-40) U/L Alkaline Phosphatase (39-117) U/L Total Protein (6.5-8.0) g/dL Albumin (3.5-5.0) g/dL Lipase (8-78) U/L Urine Color Yellow Urine Appearance Clear Urine pH 7.5 (5.0-9.0) Ur Specific [place] 1.010 (1.005-1.025) Urine Protein Negative (Neg-Trace) mg/dL Urine Glucose (UA) Negative (Negative) mg/dL Urine Ketones Negative (Negative) mg/dL Urine Blood Negative (Negative) Urine Nitrite Negative (Negative) Ur Leukocyte Esterase Negative (Negative) COVID-19 (GEMMA) (Negative) COVID-19 Clin Com Independent Interpretation I performed an independent interpretation of an: CT Scan Interpretation: No acute inflammation to RLQ, no calculi, hernia, large stool burden noted Radiology Impression Discussion of test interpretation with radiology: I have reviewed the radiologist's reading. Radiologist Impression: CT/CT abdomen pelvis wo IV con IMPRESSION: Query inflammatory changes related to the duodenum, and antrum. No evidence for an acute right lower quadrant inflammatory process. Independent Historian Clinical information obtained from an independent historian. History obtained from or confirmed by: Other ([facility]) External Record Review External record reviewed: Inpatient record, Office record and Outpatient record Prescription Management I considered prescription management with: Other Discharge Plan Discharge Clinical Impression: Constipation Patient Disposition: Home, Self-Care Instructions: Constipation (DC) Additional Instructions: You were evaluated in the emergency department today for abdominal pain which is likely related to constipation. You are being prescribed MiraLax and senna read this. Please follow-up with your primary care provider this week. Return to the emergency department if you develop worsening pain, vomiting, fever 100.4? F or greater, or any other concerning symptoms. Prescriptions: New senna 8.6 mg capsule 8.6 mg PO BID PRN (Reason: constipation) Qty: 14 0RF polyethylene glycol 3350 [Miralax] 17 gram/dose powder 17 g PO DAILY PRN (Reason: constipation) Qty: 119 0RF No Action doxycycline hyclate 100 mg capsule 100 mg PO BID Qty: 14 0RF prednisone 50 mg tablet 50 mg PO BID Qty: 5 0RF
[2023-06-22 11:48] LABS: MANUAL DIFF FLAG NO
[2023-06-22 11:51] LABS: Basophils Percent Auto 0.2 % (0-2); Eosinophils Absolute Auto 0.2 X10*3/uL (0.0-0.4); Eosinophils Percent Auto 1.4 % (0-4); Hematocrit 40.2 % (42.0-52.0); Hemoglobin 13.7 g/dl (14.0-18.0); Imm Gran Pct Auto 0.8 % (0.0-0.4); Lymphocytes Absolute Auto 0.8 X10*3/uL (1.2-4.9); Mean Corpuscular HGB Conc 34.1 g/dl (31.0-36.0); Mean Corpuscular Hemoglobin 32.6 pg (27.0-33.0); Mean Corpuscular Volume 95.7 fL (80.0-98.0); Mean Platelet Volume 9.4 fL (9.4-12.4); Monocytes Absolute Auto 0.9 X10*3/uL (0.1-1.2); Monocytes Percent Auto 7.4 % (2-11); Neutrophils Absolute Auto 10.6 x10*3/uL (2.0-8.3); Neutrophils Percent Auto 84.2 % (45-73); Platelet Count 221 X10*3/uL (160-400); Red Cell Distribution Width 11.9 % (11.0-16.0); White Blood Count 12.6 X10*3/uL (4.8-10.8)
[2023-06-22] MEDS: QUEtiapine Fumarate 25 MG TABLET PO (12:34)
[2023-06-22] MEDS: Potassium Chloride ER 20 MEQ TAB.ER.PRT PO (12:34)
[2023-06-22] MEDS: 0.9 % Sodium Chloride 500 ML IV (12:40)
[2023-06-22 16:10] LABS: Appearance Urine Clear; Color Urine Yellow; Glucose Urine UA Negative (Negative); Leukocyte Esterase Urine Negative (Negative); Nitrite Urine Negative (Negative); PH 7.5 (5.0-9.0); Urine Blood Negative (Negative); Urine Ketones Negative (Negative); Urine Protein Negative (Neg-Trace)
[2023-06-22 17:03] VITALS: BP 129/65; PULSE 97; RESP 18; O2SAT 96
== END 2023-06-22 17:05 | disposition home or self-care (01) ==
PROVIDERS: Registered Nurse Emergency; Emergency Provider Emergency Medicine; PCP Internal Medicine
DX: K59.00 Constipation, unspecified (principal); R11.2 Nausea with vomiting, unspecified; R10.31 Right lower quadrant pain; Z11.52 Encounter for screening for COVID-19; Z20.822 Contact with and (suspected) exposure to COVID-19; Z79.899 Other long term (current) drug therapy
CPT/HCPCS: 36415; 74176; 80048; 80076; 81003; 82947; 83690; 85025; 87635; 99284

== ENCOUNTER 2023-07-10 17:29 | Emergency (ER) | payer MEDICARE, SELFPAY ==
[2023-07-10 18:17] VITALS: BP 165/81; PULSE 108; RESP 16; TEMP 36.4; O2SAT 98; BMI 21.1
--- NOTE | 2023-07-10 18:19 | ED.GENADULT ---
HPI - General Adult General Chief complaint: Abdominal Pain Stated complaint: abd pain Source: patient Mode of arrival: wheelchair Limitations: no limitations History of Present Illness HPI narrative: Patient is an 88 year old assigned male at with a history of asthma and COPD presenting to the emergency department today with abdominal pain and pain with urination. Patient states that over the last week he has had worsening abdominal pain and pain with urination. Patient denies any dizziness, lightheadedness, nausea, vomiting, fever, chills, blurry vision, double vision, loss of vision, chest pain, difficulty breathing, shortness of breath, back pain, night sweats, increased urinary frequency, increased urinary urgency, blood in his urine or stool, syncope or a near syncopal episode, recent trauma or falls, bowel incontinence, bladder incontinence, bowel retention, bladder retention, or any other complaints at this time. Onset (ago): week(s) (1) Location: abdomen Radiation: non-radiation Severity: mild Severity scale (1-10): 4 Quality: aching and dull Pain Consistency: constant Relieving factors: none Exacerbating factors: none Associated symptoms: denies other symptoms Treatments prior to arrival: none Related Data Previous Rx's Medication Instructions Recorded doxycycline hyclate 100 mg capsule 100 mg PO BID #14 caps 03/09/23 prednisone 50 mg tablet 50 mg PO BID #5 tabs 03/09/23 polyethylene glycol 3350 17 17 g PO DAILY PRN constipation 06/22/23 gram/dose oral powder (Miralax) #119 grams sennosides 8.6 mg capsule (senna) 8.6 mg PO BID PRN constipation #14 06/22/23 caps Allergies Allergy/AdvReac Type Severity Reaction Status Date / Time lorazepam AdvReac Agitated Verified 06/22/23 12:25 Review of Systems Constitutional: Constitutional: Reports no additional constitutional complaints, Denies chills, Denies fever(s) and Denies night sweats Eyes: Eyes: Reports no additional eye complaints, Denies blurry vision, Denies change in vision, Denies diplopia, Denies eye discharge, Denies loss of vision and Denies eye pain ENT: Denies dizziness Cardiovascular: Cardiovascular: Reports no additional cardiovascular complaints, Denies chest pain, Denies lightheadedness, Denies Loss of Consciousness and Denies dyspnea Respiratory: Respiratory: Reports no additional respiratory complaints and Denies dyspnea Gastrointestinal: Gastrointestinal: Reports no additional gastrointestinal complaints, Reports abdominal pain, Denies melena, Denies hematochezia, Denies change in bowel habits and Denies change in stool character Genitourinary: Genitourinary: Reports no additional male genitourinary complaints, Denies hematuria, Denies oliguria, Denies difficulty urinating, Reports dysuria, Denies urinary frequency, Denies urinary hesitancy, Denies urinary incontinence and Denies urinary urgency Musculoskeletal: Musculoskeletal: Reports no additional musculoskeletal complaints, Denies numbness and Denies tingling Neurologic: Denies dizziness, Denies loss of vision, Denies numbness and Denies tingling Psychiatric: Psychiatric: Reports no additional psychiatric complaints Endocrine: Endocrine: Reports no additional endocrine complaints Hematologic/Lymphatic: Hematologic/Lymphatic: Reports no additional hematologic/lymphatic complaints Allergic/Immunologic: Allergic/Immunologic: Reports no additional allergic/immunologic complaints [facility] Past Medical History Attestation statement: The following information was validated with the patient. Source: old records reviewed and nursing notes reviewed Medical History Asthma COPD (chronic obstructive pulmonary disease) Social History Social History Alcohol intake: former Advance Directives: No Physical Exam ED Vital Signs: Vital Signs - 24 hr 07/10/23 18:17 07/10/23 20:25 07/10/23 20:44 Temperature 97.5 F 98.0 F Pulse Rate 108 H 107 H 86 Respiratory Rate 16 18 18 Blood Pressure 165/81 H 135/62 Pulse Oximetry 98 100 Oxygen Delivery Method Room Air Nasal Cannula BMI result Body Mass Index 21.1 Const General: cooperative, no acute distress, alert and awake Nutritional Appearance: well nourished Orientation/consciousness: patient oriented x3 Limitations: no limitations [facility] Head: Yes normal to inspection and Yes atraumatic Ears: hearing grossly normal bilaterally and external ears normal General nose exam: Normal external nose present, no nasal discharge noted and no epistaxis Face and sinus: Yes normal facial exam, No abrasion and No laceration Mouth: Normal oral and palatal mucosa present, no drooling and no muffled voice Eyes General: appearance normal, both eyes and all related structures Periorbital: periorbital findings normal Eyelids: Yes eyelids normal Conjunctivae: conjunctivae normal Pupils: Equal, round and reactive pupils present EOM: EOMs intact bilaterally Neck Neck: Yes normal visual inspection, Yes full ROM and Yes no lymphadenopathy Chest Chest palpation & inspection: normal inspection of the chest Resp Other: patient on oxygen via nasal cannula chronically at baseline Effort & Inspection: normal respiratory effort and able to speak in complete sentences GI Inspection: Yes normal to inspection Neuro General: patient oriented x3 and moves all extremities Cranial nerves: Yes Equal, round and reactive pupils present Cognition (Neuro): normal cognition Motor exam (neuro): 5/5 motor strength present throughout Sensory Exam: Normal double simultaneous stimulation for sensation Coordination: [id number] test normal Extrem General: Yes normal to inspection, Yes full ROM and Yes capillary refill normal Psych Appearance: grossly normal Mental Status: mental status grossly normal Affect: normal affect Attitude: cooperative Thought process: Normal thought process present Thought content: Normal thought content present Insight: Good insight present (Psych) Course Course Course Narrative: RME performed by Kenna Rico PA-C. Patient is an 88 year old assigned male at presenting to the emergency department with abdominal pain and pain with urination. Labs ordered. Patient placed back in the waiting room pending room availability and results. Medications Administered Discontinued Medications Generic Name Dose Route Start Last Admin Trade Name Freq PRN Reason Stop Dose Admin Albuterol/Ipratropium 3 ml 07/10/23 20:41 07/10/23 20:43 Albuterol/Iprat 2.5/0.5mg 3 Ml Ampul.Neb INHALE 07/10/23 20:42 3 ml ONCE ONE Administration Medical Decision Making Medical Decision Making [facility] Narrative: Patient is an 88 year old assigned male at with a history of asthma and COPD presenting to the emergency department today with abdominal pain and pain with urination. Patient's limited physical exam performed in triage was unremarkable. Patient's blood work showed an elevated blood sugar >400 but was otherwise unremarkable. Patient left the department without completing treatment. Patient left the department before myself or any of the other emergency department clinicians could explain or review physical exam findings, test results, need or lack there of for additional testing, treatment plans, or any treatment options. Differential Diagnosis Differential Diagnoses: The differential diagnosis associated with the presentation includes Abdominal pain UTI Constipation Admission/Observation Consideration of admission/observation: Escalation of care including admission/observation considered Patient left the department without completing treatment and before an admission decision could be made. Lab Data [facility] Lab Attestation statement: I reviewed the patient's lab results. My interpretation of these results are in the [facility] Rationale portion of this note. 07/10/23 19:23 07/10/23 19:23 Labs: Lab Results 07/10/23 Range/Units 19:23 WBC 9.1 (4.8-10.8) X10*3/uL RBC 3.86 L (4.60-5.80) X10*6/uL Hgb 12.7 L (14.0-18.0) g/dl Hct 37.6 L (42.0-52.0) % MCV 97.4 (80.0-98.0) fL MCH 32.9 (27.0-33.0) pg MCHC 33.8 (31.0-36.0) g/dl RDW 12.1 (11.0-16.0) % Plt Count 225 (160-400) X10*3/uL MPV 9.8 (9.4-12.4) fL Immature Gran % (Auto) 0.6 H (0.0-0.4) % Neut % (Auto) 86.6 H (45-73) % Lymph % (Auto) 4.5 L (20-40) % [place] % (Auto) 7.9 (2-11) % Eos % (Auto) 0.2 (0-4) % Baso % (Auto) 0.2 (0-2) % Lymph # (Auto) 0.4 L (1.2-4.9) X10*3/uL [place] # (Auto) 0.7 (0.1-1.2) X10*3/uL Eos # (Auto) 0.0 (0.0-0.4) X10*3/uL Baso # (Auto) 0.0 (0.0-0.2) X10*3/uL Abs Immat Gran (auto) 0.05 H (0.00-0.03) X10*3/uL Absolute Neuts (auto) 7.9 (2.0-8.3) x10*3/uL Absolute Nucleated RBC 0.000 (0.0-0.012) X10*3/uL Nucleated RBC % (auto) 0.0 (0.0-0.2) /100WBC Sodium 136 (135-145) mmol/L Potassium 4.4 D (3.3-5.1) mmol/L Chloride 99 (96-108) mmol/L Carbon Dioxide 30 H (22-29) mmol/L Anion Gap 11 L (12-20) BUN 24 H (9-16) mg/dL Creatinine 1.32 (0.5-1.4) mg/dL Estim Creat Clear Calc 33.5 Estimated GFR 51 Random Glucose 447 H* (60-115) mg/dL Calcium 9.2 (8.4-10.2) mg/dL Magnesium 2.0 (1.6-2.6) mg/dL Total Bilirubin 0.8 (0.0-1.0) mg/dL AST 16 (5-37) U/L ALT 14 (0-40) U/L Alkaline Phosphatase 86 (39-117) U/L Total Protein 5.9 L (6.5-8.0) g/dL Albumin 3.8 (3.5-5.0) g/dL Influenza Type A (PCR) NEGATIVE (Negative) Influenza Type B (PCR) NEGATIVE (Negative) RSV RNA Qual (PCR) NEGATIVE (Negative) SARS-CoV-2 RNA (RT-PCR) NEGATIVE (Negative) Discharge Plan Discharge Clinical Impression: Abdominal pain, Dysuria Patient Disposition: Left W/O Completing Treatment Prescriptions: No Action doxycycline hyclate 100 mg capsule 100 mg PO BID Qty: 14 0RF prednisone 50 mg tablet 50 mg PO BID Qty: 5 0RF senna 8.6 mg capsule 8.6 mg PO BID PRN (Reason: constipation) Qty: 14 0RF polyethylene glycol 3350 [Miralax] 17 gram/dose powder 17 g PO DAILY PRN (Reason: constipation) Qty: 119 0RF Discharge Date/Time: 07/10/23 23:04
[2023-07-10 19:31] LABS: MANUAL DIFF FLAG NO
[2023-07-10 19:34] LABS: Basophils Percent Auto 0.2 % (0-2); Eosinophils Percent Auto 0.2 % (0-4); Hematocrit 37.6 % (42.0-52.0); Hemoglobin 12.7 g/dl (14.0-18.0); Imm Gran Abs Auto 0.05 X10*3/uL (0.00-0.03); Imm Gran Pct Auto 0.6 % (0.0-0.4); Lymphocytes Absolute Auto 0.4 X10*3/uL (1.2-4.9); Lymphocytes Percent Auto 4.5 % (20-40); Mean Corpuscular HGB Conc 33.8 g/dl (31.0-36.0); Mean Corpuscular Hemoglobin 32.9 pg (27.0-33.0); Mean Corpuscular Volume 97.4 fL (80.0-98.0); Mean Platelet Volume 9.8 fL (9.4-12.4); Monocytes Absolute Auto 0.7 X10*3/uL (0.1-1.2); Monocytes Percent Auto 7.9 % (2-11); Neutrophils Absolute Auto 7.9 x10*3/uL (2.0-8.3); Neutrophils Percent Auto 86.6 % (45-73); Platelet Count 225 X10*3/uL (160-400); Red Blood Count 3.86 X10*6/uL (4.60-5.80); Red Cell Distribution Width 12.1 % (11.0-16.0); White Blood Count 9.1 X10*3/uL (4.8-10.8)
[2023-07-10 19:52] LABS: Alanine Aminotransferase 14 U/L (0-40); Albumin Level 3.8 g/dL (3.5-5.0); Alkaline Phosphatase 86 U/L (39-117); Anion Gap 11 (12-20); Aspartate Amino Transferase 16 U/L (5-37); Bilirubin Total 0.8 mg/dL (0.0-1.0); Blood Urea Nitrogen 24 mg/dL (9-16); Calcium 9.2 mg/dL (8.4-10.2); Carbon Dioxide 30 mmol/L (22-29); Chloride 99 mmol/L (96-108); Creatinine Clr Calc Pharmacy 33.5; Estimated Glomerular Filt Rate 51; Glucose Random 447 mg/dL (60-115); Potassium 4.4 mmol/L (3.3-5.1); Sodium 136 mmol/L (135-145); Total Protein 5.9 g/dL (6.5-8.0)
[2023-07-10 20:09] LABS: Influenza A PCR NEGATIVE (Negative); Influenza B PCR NEGATIVE (Negative); Resp Syncy Virus RNA Qual PCR NEGATIVE (Negative); SARS COV2 PCR INHOUSE NEGATIVE (Negative)
[2023-07-10 20:25] VITALS: BP 135/62; PULSE 107; RESP 18; TEMP 36.7; O2SAT 100
[2023-07-10] MEDS: Albuterol/Iprat 2.5/0.5MG 3 ML AMPUL.NEB INHALE (20:43)
[2023-07-10 20:44] VITALS: PULSE 86; RESP 18; O2SAT 100
== END 2023-07-10 23:04 | disposition left against medical advice (07) ==
PROVIDERS: Physician Assistant Medical; Emergency Provider Emergency Medicine; PCP Internal Medicine
DX: R30.0 Dysuria (principal); R10.9 Unspecified abdominal pain; J44.9 Chronic obstructive pulmonary disease, unspecified; Z20.822 Contact with and (suspected) exposure to COVID-19; Z20.828 Contact with and (suspected) exposure to other viral communicable diseases; Z79.899 Other long term (current) drug therapy
CPT/HCPCS: 0241U; 51798; 80053; 83735; 85025; 94640; 99283; 99284

== ENCOUNTER 2023-09-22 16:59 | Emergency (ER) | payer MEDICARE, SELFPAY ==
--- NOTE | ~2023-09-22 | XR_ITS ---
EXAMINATION: XR CHEST CLINICAL INFORMATION: Difficulty breathing. COMPARISON: Chest radiograph dated 03/08/2023. TECHNIQUE: 2 views of the chest were obtained. FINDINGS: Heart size is normal. There is no focal consolidation within either lung. There is biapical pleural-parenchymal thickening. There is no pleural effusion or pneumothorax. There is no acute osseous abnormality. XR/XR chest 2V IMPRESSION: No pneumonia.
[2023-09-22 17:06] VITALS: BP 136/76; PULSE 114; RESP 22; TEMP 37.2; O2SAT 95; BMI 23.9
--- NOTE | 2023-09-22 17:14 | ED.SOB ---
HPI - SOB/Dyspnea General Chief Complaint: Dyspnea Stated Complaint: Diff breathing Time Seen by Provider: 09/22/23 18:16 Source: patient Mode of arrival: ambulatory Limitations: no limitations History of Present Illness HPI Narrative: Patient with History of COPD/on chronic prednisone and home oxygen 3 L complaining of increased shortness of breath and cough since a.m. today use nebulizing treatment 3 or 4 times a day on arrival patient was saturating 95% on 3 L nasal cannula no fever no chills no chest pain or palpitation no increased swelling of the leg patient take insulin for hyperglycemia secondary to use of prednisone Related Data Previous Rx's Medication Instructions Recorded doxycycline hyclate 100 mg capsule 100 mg PO BID #14 caps 03/09/23 prednisone 50 mg tablet 50 mg PO BID #5 tabs 03/09/23 polyethylene glycol 3350 17 17 g PO DAILY PRN constipation 06/22/23 gram/dose oral powder (Miralax) #119 grams sennosides 8.6 mg capsule (senna) 8.6 mg PO BID PRN constipation #14 06/22/23 caps Allergies Allergy/AdvReac Type Severity Reaction Status Date / Time lorazepam AdvReac Agitated Verified 09/22/23 17:12 Review of Systems Review of Systems: Yes all other systems are reviewed and are negative [facility] Past Medical History Medical History Asthma COPD (chronic obstructive pulmonary disease) Social History Social History Alcohol intake: former Smoked in Last 30 Days: No Use of substances other than those prescribed or required for medical reasons: No Advance Directives: No Advance Directives Information Provided: No Physical Exam Vital Signs: Vital Signs: Last Vital Signs Temp 97.5 F 09/22/23 21:54 Pulse 96 09/22/23 21:54 Resp 14 09/22/23 21:54 BP 135/65 09/22/23 21:54 Pulse Ox 97 09/22/23 21:54 O2 Del Method Nasal Cannula 09/22/23 21:54 O2 Flow Rate 3 09/22/23 21:54 Oxygen Flow Rate 3 09/22/23 17:06 BMI result Body Mass Index 23.9 Appearance: Alert. Oriented X3. No acute distress. Eyes: No pallor or icterus ENT: Pharynx normal. Oral Mucosa moist Neck: Normal inspection. Neck supple. CVS: Normal heart rate and rhythm. Pulses normal. Respiratory: No respiratory distress. Equal air entry bilateral, prolonged expiration decreased air entry bilateral Abdomen: Soft and nontender. Bowel sounds are present, no mass palpable, no CVA tenderness Skin: Skin warm and dry. Normal skin color. Normal skin turgor. Extremities: No lower extremity edema. No calf tenderness Neuro: Oriented X 3. No motor deficit. Medications Administered Discontinued Medications Generic Name Dose Route Start Last Admin Trade Name Freq PRN Reason Stop Dose Admin Albuterol Sulfate 2.5 mg/ 0 mg 09/22/23 18:53 09/22/23 19:37 Albuterol/Ipratropium 3 ml INHALE 09/22/23 18:54 5 dose ONCE ONE Administration Glucose 15 gm 09/22/23 21:49 09/22/23 21:54 Glucose Gel 15 Gm Gel..Gram. PO 09/22/23 21:50 15 gm ONCE ONE Administration Insulin Human Lispro 10 unit 09/22/23 18:54 09/22/23 19:03 Insulin Lispro 100 Unit/Ml 3 Ml Vial SUBCUT 09/22/23 18:55 10 unit ONCE ONE Administration Medical Decision Making Medical Decision Making [facility] Narrative: Patient with stable COPD workup negative for acute chest x-ray negative for infiltrates labs are stable except for the elevated blood glucose of 344 patient received 10 units of Humalog just before discharge patient's blood sugar dropped to 33 which improved after glucose and juice you did not eat today in the evening likely the cause for the hypoglycemia with insulin at the time of discharge patient feeling much better Differential Diagnosis Differential Diagnoses: The differential diagnosis associated with the presentation includes Bronchitis/pneumonia/viral infection Lab Data [facility] Lab Attestation statement: I reviewed the patient's lab results. 09/22/23 18:11 09/22/23 18:11 Labs: Lab Results 09/22/23 09/22/23 09/22/23 Range/Units 18:11 19:00 20:04 WBC 8.3 (4.8-10.8) X10*3/uL RBC 3.75 L (4.60-5.80) X10*6/uL Hgb 12.7 L (14.0-18.0) g/dl Hct 36.3 L (42.0-52.0) % MCV 96.8 (80.0-98.0) fL MCH 33.9 H (27.0-33.0) pg MCHC 35.0 (31.0-36.0) g/dl RDW 12.2 (11.0-16.0) % Plt Count 231 (160-400) X10*3/uL MPV 9.6 (9.4-12.4) fL Immature Gran % (Auto) 1.3 H (0.0-0.4) % Neut % (Auto) 85.8 H (45-73) % Lymph % (Auto) 5.2 L (20-40) % [place]atte % (Auto) 7.4 (2-11) % Eos % (Auto) 0.1 (0-4) % Baso % (Auto) 0.2 (0-2) % Lymph # (Auto) 0.4 L (1.2-4.9) X10*3/uL Platte # (Auto) 0.6 (0.1-1.2) X10*3/uL Eos # (Auto) 0.0 (0.0-0.4) X10*3/uL Baso # (Auto) 0.0 (0.0-0.2) X10*3/uL Abs Immat Gran (auto) 0.11 H (0.00-0.03) X10*3/uL Absolute Neuts (auto) 7.1 (2.0-8.3) x10*3/uL Absolute Nucleated RBC 0.000 (0.0-0.012) X10*3/uL Nucleated RBC % (auto) 0.0 (0.0-0.2) /100WBC PT 12.3 (11.1-13.3) SEC INR 1.0 (0.9-1.1) Sodium 137 (135-145) mmol/L Potassium 3.6 (3.3-5.1) mmol/L Chloride 98 (96-108) mmol/L Carbon Dioxide 30 H (22-29) mmol/L Anion Gap 13 (12-20) BUN 23 H (9-16) mg/dL Creatinine 1.36 (0.5-1.4) mg/dL Estim Creat Clear Calc 30.2 Estimated GFR 49 POC Glucose 172 H (60-115) mg/dL Random Glucose 344 H (60-115) mg/dL Calcium 8.9 (8.4-10.2) mg/dL Magnesium 1.8 (1.6-2.6) mg/dL Troponin I High Sens 3.2 (<3.5-35.0) ng/L Influenza Type A (PCR) NEGATIVE (Negative) Influenza Type B (PCR) NEGATIVE (Negative) RSV RNA Qual (PCR) NEGATIVE (Negative) SARS-CoV-2 RNA (RT-PCR) NEGATIVE (Negative) 09/22/23 Range/Units 21:14 WBC (4.8-10.8) X10*3/uL RBC (4.60-5.80) X10*6/uL Hgb (14.0-18.0) g/dl Hct (42.0-52.0) % MCV (80.0-98.0) fL MCH (27.0-33.0) pg MCHC (31.0-36.0) g/dl RDW (11.0-16.0) % Plt Count (160-400) X10*3/uL MPV (9.4-12.4) fL Immature Gran % (Auto) (0.0-0.4) % Neut % (Auto) (45-73) % Lymph % (Auto) (20-40) % Platte % (Auto) (2-11) % Eos % (Auto) (0-4) % Baso % (Auto) (0-2) % Lymph # (Auto) (1.2-4.9) X10*3/uL Platte # (Auto) (0.1-1.2) X10*3/uL Eos # (Auto) (0.0-0.4) X10*3/uL Baso # (Auto) (0.0-0.2) X10*3/uL Abs Immat Gran (auto) (0.00-0.03) X10*3/uL Absolute Neuts (auto) (2.0-8.3) x10*3/uL Absolute Nucleated RBC (0.0-0.012) X10*3/uL Nucleated RBC % (auto) (0.0-0.2) /100WBC PT (11.1-13.3) SEC INR (0.9-1.1) Sodium (135-145) mmol/L Potassium (3.3-5.1) mmol/L Chloride (96-108) mmol/L Carbon Dioxide (22-29) mmol/L Anion Gap (12-20) BUN (9-16) mg/dL Creatinine (0.5-1.4) mg/dL Estim Creat Clear Calc Estimated GFR POC Glucose 33 L* (60-115) mg/dL Random Glucose (60-115) mg/dL Calcium (8.4-10.2) mg/dL Magnesium (1.6-2.6) mg/dL Troponin I High Sens (<3.5-35.0) ng/L Influenza Type A (PCR) (Negative) Influenza Type B (PCR) (Negative) RSV RNA Qual (PCR) (Negative) SARS-CoV-2 RNA (RT-PCR) (Negative) Independent Interpretation I performed an independent interpretation of an: EKG and Plain X-Ray Interpretation: Sinus tachycardia with heart rate of 104 beats per minute PACs no acute ST T wave changes no acute ischemia Radiology Impression Discussion of test interpretation with radiology: I have reviewed the radiologist's reading. Discharge Plan Discharge Clinical Impression: COPD (chronic obstructive pulmonary disease), Hyperglycemia, drug-induced Patient Disposition: Home, Self-Care Instructions: COPD (Chronic Obstructive Pulmonary Disease) (DC), Nondiabetic Hyperglycemia (ED) Additional Instructions: Drink plenty of fluids use your nebulizing treatment every 4-6 hours as needed continue prednisone Your x-rays negative for pneumonia lab workup are stable Take your insulin according to your sliding scale and follow with PCP Prescriptions: No Action doxycycline hyclate 100 mg capsule 100 mg PO BID Qty: 14 0RF prednisone 50 mg tablet 50 mg PO BID Qty: 5 0RF senna 8.6 mg capsule 8.6 mg PO BID PRN (Reason: constipation) Qty: 14 0RF polyethylene glycol 3350 [Miralax] 17 gram/dose powder 17 g PO DAILY PRN (Reason: constipation) Qty: 119 0RF Interventions: ED Discharge Assessment Last Done: 09/22/23 22:02 Discharge Date/Time: 09/22/23 22:02 Print Language: Divehi
--- NOTE | 2023-09-22 17:16 | ECG_ITS ---
Test Reason : DIFFICULTY BREATHING Blood Pressure : / mmHG Vent. Rate : 104 BPM Atrial Rate : 104 BPM P-R Int : 126 ms QRS Dur : 066 ms QT Int : 344 ms P-R-T Axes : 084 022 074 degrees QTc Int : 452 ms Sinus tachycardia with Premature atrial complexes Otherwise normal ECG When compared with ECG of 08-MAR-2023 22:46, Premature atrial complexes are now Present Referred By: Sindi Tyson Electronically Signed By:Jame Real
[2023-09-22 18:17] LABS: MANUAL DIFF FLAG NO
[2023-09-22 18:21] VITALS: BP 128/68; PULSE 102; RESP 20; TEMP 37.1; O2SAT 97
[2023-09-22 18:30] LABS: Prothrombin Time 12.3 SEC (11.1-13.3)
[2023-09-22 18:32] LABS: Anion Gap 13 (12-20); Blood Urea Nitrogen 23 mg/dL (9-16); Calcium 8.9 mg/dL (8.4-10.2); Carbon Dioxide 30 mmol/L (22-29); Chloride 98 mmol/L (96-108); Creatinine Clr Calc Pharmacy 30.2; Estimated Glomerular Filt Rate 49; Glucose Random 344 mg/dL (60-115); Magnesium 1.8 mg/dL (1.6-2.6); Potassium 3.6 mmol/L (3.3-5.1); Sodium 137 mmol/L (135-145)
[2023-09-22 18:36] LABS: Basophils Percent Auto 0.2 % (0-2); Eosinophils Percent Auto 0.1 % (0-4); Hematocrit 36.3 % (42.0-52.0); Hemoglobin 12.7 g/dl (14.0-18.0); Imm Gran Abs Auto 0.11 X10*3/uL (0.00-0.03); Imm Gran Pct Auto 1.3 % (0.0-0.4); Lymphocytes Absolute Auto 0.4 X10*3/uL (1.2-4.9); Lymphocytes Percent Auto 5.2 % (20-40); Mean Corpuscular Hemoglobin 33.9 pg (27.0-33.0); Mean Corpuscular Volume 96.8 fL (80.0-98.0); Mean Platelet Volume 9.6 fL (9.4-12.4); Monocytes Absolute Auto 0.6 X10*3/uL (0.1-1.2); Monocytes Percent Auto 7.4 % (2-11); Neutrophils Absolute Auto 7.1 x10*3/uL (2.0-8.3); Neutrophils Percent Auto 85.8 % (45-73); Platelet Count 231 X10*3/uL (160-400); Red Blood Count 3.75 X10*6/uL (4.60-5.80); Red Cell Distribution Width 12.2 % (11.0-16.0); White Blood Count 8.3 X10*3/uL (4.8-10.8)
[2023-09-22 18:39] LABS: Troponin-I High Sensitivity 3.2 ng/L (<3.5-35.0)
[2023-09-22 18:42] VITALS: RESP 20
--- NOTE | 2023-09-22 18:45 | PC.NURSE ---
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
[2023-09-22] MEDS: Insulin Lispro 100 UNIT/ML 3 ML VIAL 10 UNIT SUBCUT (19:03)
[2023-09-22 19:05] VITALS: BP 136/72; PULSE 94; RESP 14; TEMP 36.6; O2SAT 98
[2023-09-22 19:37] VITALS: PULSE 98; RESP 16; O2SAT 100
[2023-09-22] MEDS: Albuterol Sulfate 2.5 MG, Albuterol/Iprat 2.5/0.5MG 3 ML 3 ML INHALE (19:37)
[2023-09-22 19:41] LABS: Influenza A PCR NEGATIVE (Negative); Influenza B PCR NEGATIVE (Negative); Resp Syncy Virus RNA Qual PCR NEGATIVE (Negative); SARS COV2 PCR INHOUSE NEGATIVE (Negative)
[2023-09-22 20:08] LABS: Glucose, Whole Blood 172 mg/dL (60-115)
[2023-09-22 21:27] LABS: Glucose, Whole Blood 33 mg/dL (60-115)
--- NOTE | 2023-09-22 21:50 | PC.NURSE ---
This RN notified of pts blood glucose level of 33. Pt shaking and diaphoretic reporting feeling tired and weak. 15G of glucose gel administered, sandwich and orange juice provided. MD made aware and at bedside. Blood glucose re-assessed with improvement to 111. Pts symptoms improved. Pt is not diaphoretic or shaking. VSS. MD aware and approves for pt to be discharged.
[2023-09-22 21:54] VITALS: BP 135/65; PULSE 96; RESP 14; TEMP 36.4; O2SAT 97
[2023-09-22] MEDS: Glucose Gel 15 GM GEL..GRAM. PO (21:54)
[2023-09-23 00:17] LABS: Glucose, Whole Blood 38 mg/dL (60-115)
[2023-09-23 00:17] LABS: Glucose, Whole Blood 111 mg/dL (60-115)
== END 2023-09-22 22:02 | disposition home or self-care (01) ==
PROVIDERS: Physician Assistant Medical; Emergency Provider Internal Medicine; PCP Internal Medicine
DX: J44.9 Chronic obstructive pulmonary disease, unspecified (principal); R06.02 Shortness of breath; R05.9 Cough, unspecified; R00.0 Tachycardia, unspecified; E11.65 Type 2 diabetes mellitus with hyperglycemia; Z79.4 Long term (current) use of insulin; Z79.899 Other long term (current) drug therapy; Z20.822 Contact with and (suspected) exposure to COVID-19; Z20.828 Contact with and (suspected) exposure to other viral communicable diseases
CPT/HCPCS: 0241U; 36415; 71046; 80048; 82947; 83735; 84484; 85025; 85610; 93005; 94640; 99284; 99285

== ENCOUNTER → 2023-09-22 17:16 | Outpatient (BNV) | payer MEDICARE, SELFPAY | PROVIDERS: Emergency Provider Internal Medicine; PCP Internal Medicine; Visit Provider Internal Medicine Cardiovascular Disease | DX: R00.0 Tachycardia, unspecified (principal); I49.1 Atrial premature depolarization | CPT/HCPCS: 93010 ==